=== PATIENT | female | born 1950 | race African-American/Black ===

== ENCOUNTER 2023-12-02 04:52 | Day surgery (SDC) | payer OTHER, MEDICARE ==
[2023-12-01 09:55] VITALS: BMI 29.6
[2023-12-02] MEDS ORDERED: LIDOCAINE HCL/PF 2% SDV 5ML VIAL ONE (07:12)
[2023-12-02] MEDS ORDERED: BUPIVACAINE HCL/PF 0.75% 10 ML VIAL ONE (07:13)
[2023-12-02] MEDS ORDERED: BUPIVACAINE HCL/PF 0.25% (2.5MG/ML) 10 ML VIAL ONE (07:13)
[2023-12-02] MEDS ORDERED: LIDOCAINE HCL/PF 1% SDV 5ML VIAL ONE (07:13)
[2023-12-02] MEDS ORDERED: BUPIVACAINE HCL/PF 0.5% (5MG/ML) 10 ML VIAL ONE (07:13)
[2023-12-02] MEDS: LIDOCAINE 1% P/F 10 MG/ML VIAL INF ONE (13:28)
[2023-12-02] MEDS: IOHEXOL 180 MG/1 ML ML IJ ONE (13:28)
[2023-12-02] MEDS: DEXAMETHASONE SOD PHOSPHATE 10 MG/1 ML VIAL IVPUSH ONE (13:29)
[2023-12-02 13:42] VITALS: RESP 20
[2023-12-02 13:53] VITALS: TEMP 98
[2023-12-02 15:05] VITALS: BP 120/60; PULSE 80
== END 2023-12-02 14:30 | disposition home or self-care (01) ==
LOC: JASU-SURG 04:52
PROVIDERS: ATTEND Pain Medicine Pain Medicine
PROC: 3E0R3BZ Introduction of Anesthetic Agent into Spinal Canal, Percutaneous Approach (ICD-10-PCS; 2023-12-02)
PROC: 3E0R33Z Introduction of Anti-inflammatory into Spinal Canal, Percutaneous Approach (ICD-10-PCS; principal; 2023-12-02 12:00)
DX: M54.16 Radiculopathy, lumbar region (principal); M48.061 Spinal stenosis, lumbar region without neurogenic claudication
CPT/HCPCS: 76000-TC-FY; J1100